=== PATIENT | male | born 1970 | race Caucasian/White ===

== ENCOUNTER 2019-07-07 11:22 | Emergency (ER) | payer SELFPAY ==
[~2019-07-07] VITALS: Ht 172.7 cm; Wt 87.6 kg
[2019-07-07] MEDS ORDERED: NS IV 1000 ML 1,000 ML IV SCH (12:15)
[2019-07-07] MEDS ORDERED: NS 100 ML (IVPB) BAG IV ONE (12:15)
[2019-07-07] MEDS ORDERED: ONDANSETRON 4 MG/2 ML (SDV) Z0FRAN IVP ONE (12:15)
[2019-07-07] MEDS ORDERED: LORazepam INJ 2 MG/ML (ATIVAN) VIAL IVP ONE ×3 (12:15→15:00)
[2019-07-07] MEDS ORDERED: HOLD METFORMIN - RECEIVED CONTRAST 20 ML VIAL IV SCH (12:15)
[2019-07-07] MEDS ORDERED: KETOROLAC 30 MG/ML VIAL IVP ONE (12:15)
[2019-07-07] MEDS ORDERED: CATHETER FLUSH 10 ML SYR IV PRN (12:15)
[2019-07-07] MEDS ORDERED: IOHEXOL 350 MG/ML 100 ML (OMNIPAQUE 350) VIAL IV ONE (12:15)
--- NOTE | 2019-07-07 12:16 | ED Psychosocial ---
General Chief Complaint: Substance Abuse Stated Complaint: ALCOHOL WITHDRAWAL Nursing Triage Note: Patient reports he is a binge drinker, states his latest binge began on June 24 and ended on July 06. He states during his binge he had 1 bottle of whiskey and 3 tall beers per day. He states his last drink was around noon yesterday and he woke during the night with shakiness, nausea, diarrhea, and anxiety. He states he has been to rehab at [facility] in [place], states today he spoke with someone named "Sheyla, here in town on [facility]" about getting into rehab. He states he has to have a librium script in hand before checking in to this rehab, unable to remember the name of the facility. Source: patient Exam Limitations: no limitations History of Present Illness Date Seen by Provider: Jul 07, 2019 Time Seen by Provider: 11:35 Initial Comments The patient is a pleasant 48-year-old male presents for evaluation of alcohol withdrawal. He states that he has been binge drinking since June 24 and stopped drinking yesterday around noon. He states that he is an alcoholic and before this recent binge had been sober for a few months after having gone through withdrawal at [place]. He states that he normally drinks one bottle of whiskey and 3 tall beers daily. Last night he was feeling very shaky, anxious, nauseated, and uncomfortable. He is also complaining of some right lower quadrant abdominal discomfort. He says that he reached out to someone today (on [facility], [facility]) to try to help with his symptoms and was told that he would need to come in to get a prescription for Librium to help with outpatient treatment. Allergies and Home Medications Allergies Coded Allergies: No Known Drug Allergies (Unverified , 07/07/19) Patient Home Medication List Home Medication List Reviewed: Yes Review of Systems Constitutional: dizziness, weakness EENTM: no symptoms reported Respiratory: no symptoms reported Cardiovascular: no symptoms reported Gastrointestinal: RLQ, abdominal pain, diarrhea, nausea Genitourinary: no symptoms reported Musculoskeletal: no symptoms reported Skin: no symptoms reported Psychiatric/Neurological: Anxiety All Other Systems Reviewed Negative Unless Noted: Yes Past Yzkcdsi-Svpanj-Lqidbp Hx Patient Social History Alcohol Use: Regular Use Number of Drinks Today: 0 Alcohol Beverage of Choice: Beer, Whiskey Recreational Drug Use: No Smoking Status: Current Everyday Smoker Type Used: Cigarettes 2nd Hand Smoke Exposure: No Recent Foreign Travel: No Contact w/Someone Who Travel: No Recent Infectious Disease Expo: No Recent Hopitalizations: No Physical Abuse: No Sexual Abuse: No Mistreated: No Fear: No Seasonal Allergies Seasonal Allergies: No Past Medical History Surgeries: Yes (knee scope) Respiratory: Yes COPD Cardiac: Yes High Cholesterol Neurological: No Genitourinary: No Gastrointestinal: No Musculoskeletal: No Endocrine: No HEENT: No Cancer: No Psychosocial: No Integumentary: No Physical Exam Vital Signs - First Documented 07/07/19 11:30 Temp 37.2 Pulse 105 Resp 18 B/P (MAP) 174/96 (122) Pulse Ox 96 O2 Delivery Room Air Capillary Refill : Less Than 3 Seconds Height, Weight, BMI Height: '" Weight: lbs. oz. 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 II-XII nml as tested, no motor/sensory deficits, alert, normal mood/affect, oriented x 3 Appearance/Memory: appropriate appearance, appropriate insight Behavior/Eye Contact: cooperative, good eye contact, normal speech Thoughts/Hallucinations: normal thought pattern Skin: normal color, warm/dry Progress/Results/Core Measures Results/Orders Lab Results Laboratory Tests Test 07/07/19 12:14 07/07/19 12:25 Range/Units Urine Opiates Screen NEGATIVE NEGATIVE Urine Oxycodone Screen NEGATIVE NEGATIVE Urine Methadone Screen NEGATIVE NEGATIVE Urine Propoxyphene Screen NEGATIVE NEGATIVE Urine Barbiturates Screen NEGATIVE NEGATIVE Ur Tricyclic Antidepressants Screen NEGATIVE NEGATIVE Urine Phencyclidine Screen NEGATIVE NEGATIVE Urine Amphetamines Screen NEGATIVE NEGATIVE Urine Methamphetamines Screen NEGATIVE NEGATIVE Urine Benzodiazepines Screen NEGATIVE NEGATIVE Urine Cocaine Screen NEGATIVE NEGATIVE Urine Cannabinoids Screen NEGATIVE NEGATIVE White Blood Count 11.7 H 4.3-11.0 10^3/uL Red Blood Count 4.76 4.35-5.85 10^6/uL Hemoglobin 14.5 13.3-17.7 G/DL Hematocrit 42 40-54 % Mean Corpuscular Volume 88 80-99 FL Mean Corpuscular Hemoglobin 30 25-34 PG Mean Corpuscular Hemoglobin Concent 34 32-36 G/DL Red Cell Distribution Width 13.8 10.0-14.5 % Platelet Count 245 130-400 10^3/uL Mean Platelet Volume 9.3 7.4-10.4 FL Neutrophils (%) (Auto) 75 42-75 % Lymphocytes (%) (Auto) 16 12-44 % Monocytes (%) (Auto) 7 0-12 % Eosinophils (%) (Auto) 0 0-10 % Basophils (%) (Auto) 1 0-10 % Neutrophils # (Auto) 8.8 H 1.8-7.8 X 10^3 Lymphocytes # (Auto) 1.9 1.0-4.0 X 10^3 Monocytes # (Auto) 0.8 0.0-1.0 X 10^3 Eosinophils # (Auto) 0.0 0.0-0.3 10^3/uL Basophils # (Auto) 0.1 0.0-0.1 10^3/uL Sodium Level 131 L 135-145 MMOL/L Potassium Level 3.8 3.6-5.0 MMOL/L Chloride Level 91 L 98-107 MMOL/L Carbon Dioxide Level 21 21-32 MMOL/L Anion Gap 19 H 5-14 MMOL/L Blood Urea Nitrogen 9 7-18 MG/DL Creatinine 0.55 L 0.60-1.30 MG/DL Estimat Glomerular Filtration Rate > 60 BUN/Creatinine Ratio 16 Glucose Level 88 70-105 MG/DL Calcium Level 9.4 8.5-10.1 MG/DL Corrected Calcium 8.5-10.1 MG/DL Total Bilirubin 1.0 0.1-1.0 MG/DL Aspartate Amino Transf (AST/SGOT) 44 H 5-34 U/L Alanine Aminotransferase (ALT/SGPT) 57 H 0-55 U/L Alkaline Phosphatase 51 40-136 U/L Total Protein 7.4 6.4-8.2 GM/DL Albumin 4.7 H 3.2-4.5 GM/DL Lipase 26 8-78 U/L Serum Alcohol < 10 <10 MG/DL My Orders Orders - STEPHON SALAS DO Cbc With Automated Diff (07/07/19 12:02) Comprehensive Metabolic Panel (07/07/19 12:02) Lipase (07/07/19 12:02) Alcohol (07/07/19 12:02) Ed Iv/Invasive Line Start (07/07/19 12:02) Ct Abdomen/Pelvis W (07/07/19 12:02) Ondansetron Injection (Zofran Injectio (07/07/19 12:15) Ketorolac Injection (Toradol Injection) (07/07/19 12:15) Lorazepam Injection (Ativan Injection) (07/07/19 12:15) Ns Iv 1000 Ml (Sodium Chloride 0.9%) (07/07/19 12:15) Track Patrol (07/07/19 12:02) Iohexol Injection (Omnipaque 350 Mg/Ml 1 (07/07/19 12:15) Received Contrast (Hold Metformin- Contr (07/07/19 12:15) Sodium Chloride Flush (Catheter Flush Sy (07/07/19 12:15) Ns (Ivpb) (Sodium Chloride 0.9% Ivpb Bag (07/07/19 12:15) Drug Screen Stat (Urine) (07/07/19 12:20) Medications Given in ED Current Medications Medications Dose Ordered Sig/Kady Route Start Time Stop Time Status Last Admin Dose Admin Iohexol 100 ml ONCE ONCE IV 07/07/19 12:15 07/07/19 12:16 DC 07/07/19 12:47 100 ML Ketorolac Tromethamine 30 mg ONCE ONCE IVP 07/07/19 12:15 07/07/19 12:16 DC 07/07/19 12:33 30 MG Lorazepam 2 mg ONCE ONCE IVP 07/07/19 12:15 07/07/19 12:16 DC 07/07/19 12:32 2 MG Ondansetron HCl 4 mg ONCE ONCE IVP 07/07/19 12:15 07/07/19 12:16 DC 07/07/19 12:32 4 MG Sodium Chloride 10 ml NEEDED PRN IV 07/07/19 12:15 07/07/19 12:47 10 ML Sodium Chloride 100 ml ONCE ONCE IV 07/07/19 12:15 07/07/19 12:16 DC 07/07/19 12:47 80 ML Vital Signs/I&O 07/07/19 11:30 Temp 37.2 Pulse 105 Resp 18 B/P (MAP) 174/96 (122) Pulse Ox 96 O2 Delivery Room Air Blood Pressure Mean: 122 POS Progress Progress Note : Progress Note @1425 - case was discussed with the [facility] who confirms that if the patient is given a prescription for Librium they can enroll him in outpatient therapy. I did offer to transfer the patient for inpatient therapy but he declines. He teas or severe alcohol withdrawal symptoms at this time. Advised the patient to return to the emergency Department immediately for new or worsening symptoms. He will also go home with a prescription for moxifloxacin for the possible inflammatory bowel disease. Departure Impression Primary Impression: Alcohol withdrawal Additional Impression: Colitis Disposition: HOME, SELF-CARE Condition: Stable Departure-Patient Inst. Decision time for Depature: 14:29 Referrals: [facility]/RODGER ROWE,LOCAL PHYSICIAN (PCP) Primary Care Physician Patient Instructions: Colitis, Alcohol Withdrawal Add. Discharge Instructions: Follow-up today with the [facility] with him you previously spoke. Take the prescribed medication as directed. Return to the emergency Department immediately for new or worsening symptoms. Scripts Chlordiazepoxide HCl (Chlordiazepoxide HCl) 25 Mg Capsule 50 MG PO Q6H PRN for withdrawal symptoms for 5 Days, #40 CAP Prov: STEPHON SALAS DO 07/07/19 Moxifloxacin HCl (Moxifloxacin HCl) 400 Mg Tablet 400 MG PO DAILY for 7 Days, #7 TAB Prov: STEPHON SALAS DO 07/07/19 STEPHON SALAS DO Jul 07, 2019 12:16 POS
[2019-07-07 12:32] LABS: BASOPHILS # (AUTO) 0.1 10^3/uL (0.0-0.1); BASOPHILS % (AUTO) 1 % (0-10); EOSINOPHILS % (AUTO) 0 % (0-10); HEMATOCRIT 42 % (40-54); HEMOGLOBIN 14.5 G/DL (13.3-17.7); LYMPHOCYTES # (AUTO) 1.9 X 10^3 (1.0-4.0); LYMPHOCYTES % (AUTO) 16 % (12-44); MEAN CORPUSCULAR HEMOGLOBIN 30 PG (25-34); MEAN CORPUSCULAR HGB CONC 34 G/DL (32-36); MEAN CORPUSCULAR VOLUME 88 FL (80-99); MEAN PLATELET VOLUME 9.3 FL (7.4-10.4); MONOCYTES # (AUTO) 0.8 X 10^3 (0.0-1.0); MONOCYTES % (AUTO) 7 % (0-12); NEUTROPHILS # (AUTO) 8.8 X 10^3 (1.8-7.8); NEUTROPHILS % (AUTO) 75 % (42-75); PLATELET COUNT 245 10^3/uL (130-400); RED CELL DISTRIBUTION WIDTH 13.8 % (10.0-14.5); WHITE BLOOD COUNT 11.7 10^3/uL (4.3-11.0)
[2019-07-07 12:36] LABS: AMPHETAMINE SCREEN, URINE NEGATIVE (NEGATIVE); BARBITURATE SCREEN URINE NEGATIVE (NEGATIVE); BENZODIAZEPINES SCREEN URINE NEGATIVE (NEGATIVE); CANNABINOID SCREEN, URINE NEGATIVE (NEGATIVE); COCAINE SCREEN URINE NEGATIVE (NEGATIVE); METHADONE STAT NEGATIVE (NEGATIVE); METHAMPHETAMINE SCREEN URINE S NEGATIVE (NEGATIVE); OPIATE SCREEN URINE NEGATIVE (NEGATIVE); OXYCODONE STAT NEGATIVE (NEGATIVE); PROPOXYPHENE STAT NEGATIVE (NEGATIVE); TRICYCLIC ANTIDEPRESSANTS SCRE NEGATIVE (NEGATIVE)
[2019-07-07 12:53] LABS: ALANINE AMINOTRANSFERASE 57 U/L (0-55); ALKALINE PHOSPHATASE 51 U/L (40-136); BUN/CREATININE RATIO 16; CALCIUM 9.4 MG/DL (8.5-10.1); CARBON DIOXIDE 21 MMOL/L (21-32); CHLORIDE 91 MMOL/L (98-107); CREATININE SERUM 0.55 MG/DL (0.60-1.30); GFR ESTIMATED > 60; GLUCOSE 88 MG/DL (70-105); POTASSIUM 3.8 MMOL/L (3.6-5.0); SODIUM 131 MMOL/L (135-145)
[2019-07-07 12:54] LABS: ALBUMIN 4.7 GM/DL (3.2-4.5); LIPASE 26 U/L (8-78); TOTAL PROTEIN 7.4 GM/DL (6.4-8.2)
--- NOTE | 2019-07-07 13:25 | Diagnostic Imaging Report ---
PROCEDURE: CT abdomen and pelvis with contrast. TECHNIQUE: Multiple contiguous axial images were obtained through the abdomen and pelvis after administration of intravenous contrast. Auto Exposure Controls were utilized during the CT exam to meet ALARA standards for radiation dose reduction. INDICATION: Binge drinking, nausea. FINDINGS: The visualized lung bases are clear. The liver demonstrated diffusely decreased density throughout. A 1 cm enhancing mass is identified within the posterior and lateral aspect of the right hepatic lobe. The spleen is unremarkable. The adrenal glands are unremarkable. The pancreas is unremarkable. The gallbladder is unremarkable. The right kidney is unremarkable. Several nonobstructing renal calculi are identified within the mid left kidney. This is associated with cortical scarring and thinning. The left kidney is otherwise unremarkable. Mild vascular calcifications within the abdominal aorta and its branch vessels without aneurysmal dilatation of the abdominal aorta. The urinary bladder is unremarkable. Diffuse mural thickening of the colon is noted with associated fatty infiltration of the colon. Additionally, a few loops of small bowel also demonstrate mural thickening, particularly within the left mid abdomen with associated hyperenhancement. No bowel obstruction or pneumatosis. The appendix is unremarkable. No significant adenopathy, free air, or free fluid throughout the abdomen or pelvis. No acute osseous abnormality. IMPRESSION: Diffuse mural thickening of the colon with scattered regions of small bowel mural thickening. Findings are favored related to underlying enteritis/inflammatory bowel disease. Given fatty infiltration throughout the colon, this can be seen secondary to sequelae of inflammatory bowel disease. Fatty infiltration of the liver with indeterminate 1 cm hyperenhancing lesion within the right hepatic lobe. This may simply relate to a flash filling hemangioma, though other etiologies not excluded. Nonobstructing left renal calculi with associated left renal scarring. Dictated by: Dictated on workstation # [id number]
--- NOTE | 2019-07-07 14:19 | NUR ---
Spoke with Sheyla at [facility]. Sheyla confirmed what patient had reported; patient will need a filled prescription for withdrawals for 5 days in hand when he presents to [facility] in [place] for rehab.
[2019-07-07] MEDS ORDERED: CHLO25CA10 PO (14:36)
[2019-07-07] MEDS ORDERED: MOXI400T31 PO (14:36)
[2019-07-07 15:05] VITALS: BP 165/83
== END 2019-07-07 15:10 | disposition home or self-care (01) ==
LOC: ER FS 11:23
DX: F10.239 Alcohol dependence with withdrawal, unspecified (principal); K52.9 Noninfective gastroenteritis and colitis, unspecified; J44.9 Chronic obstructive pulmonary disease, unspecified; E78.00 Pure hypercholesterolemia, unspecified; F17.210 Nicotine dependence, cigarettes, uncomplicated
CPT/HCPCS: 36415; 74177; 80053; 80306; 80320; 83690; 85025

== ENCOUNTER 2020-02-14 21:58 | Emergency (ER) | payer SELFPAY ==
[~2020-02-14] VITALS: Ht 172 cm; Wt 81.0 kg
[~2020-02-14 21:58] MED LIST: CHLO25CA10 PO; MOXI400T31 PO
[2020-02-14 22:01] VITALS: BP 171/118
[2020-02-14] MEDS ORDERED: DOXY100T2 PO (22:14)
--- NOTE | 2020-02-14 22:14 | ED Integumentary General ---
General Chief Complaint: Skin/Wound Problems Stated Complaint: SPIDER BITE Source: patient Exam Limitations: no limitations History of Present Illness Date Seen by Provider: Feb 14, 2020 Time Seen by Provider: 22:11 Initial Comments To ER with a suspected spider bite to the left forearm. He states this began as a blister at about noon today now has more erythema and a red streak going up the left arm. Timing/Duration: just prior to arrival Severity: moderate Associated Symptoms: denies symptoms Allergies and Home Medications Allergies Coded Allergies: No Known Drug Allergies (Unverified , 07/07/19) Home Medications Chlordiazepoxide HCl 25 Mg Capsule, 50 MG PO Q6H PRN for withdrawal symptoms Prescribed by: STEPHON SALAS on 07/07/19 1436 Moxifloxacin HCl 400 Mg Tablet, 400 MG PO DAILY Prescribed by: STEPHON SALAS on 07/07/19 1436 Patient Home Medication List Home Medication List Reviewed: Yes Review of Systems Review of Systems Constitutional: see HPI EENTM: see HPI Respiratory: no symptoms reported Cardiovascular: no symptoms reported Genitourinary: no symptoms reported Musculoskeletal: no symptoms reported Skin: see HPI Psychiatric/Neurological: No Symptoms Reported Endocrine: No Symptoms Reported Past Cpcipyi-Tpnpqe-Fxmhei Hx Patient Social History Alcohol Beverage of Choice: Beer, Whiskey Type Used: Cigarettes 2nd Hand Smoke Exposure: No Recent Foreign Travel: No Contact w/Someone Who Travel: No Recent Hopitalizations: No Seasonal Allergies Seasonal Allergies: No Past Medical History Surgeries: Yes (knee scope) Respiratory: Yes COPD Cardiac: Yes High Cholesterol Neurological: No Genitourinary: No Gastrointestinal: No Musculoskeletal: No Endocrine: No HEENT: No Cancer: No Psychosocial: No Integumentary: No Physical Exam Vital Signs Capillary Refill : General Appearance: WD/WN, no apparent distress HEENT: PERRL/EOMI, normal ENT inspection Neck: non-tender, full range of motion Cardiovascular: no edema, tachycardia Respiratory: normal breath sounds, no respiratory distress, no accessory muscle use Neurologic/Psychiatric: alert, normal mood/affect, oriented x 3 Skin: normal color, warm/dry Skin Problem Character: erythema, other (no drainable abscess. Half-dollar sized area of erythema with slight induration. Culture was collected.) Comments He is also tachycardic at about 1:15 and with high blood pressure 180/110. States he has a history of high blood pressure. Takes lisinopril at home. I'll give him a Toprol here. Progress/Results/Core Measures Results/Orders My Orders Orders - VILMA LIRA APRN Wound Culture (02/14/20 22:09) Metoprolol Tartrate (Ir) Tab (Lopressor (02/14/20 22:15) Doxycycline Hyclate Tablet (Vibramycin T (02/14/20 22:15) Departure Impression Primary Impression: Soft tissue infection Additional Impression: Hypertension Qualified Codes: I10 - Essential (primary) hypertension Disposition: HOME, SELF-CARE Condition: Stable Departure-Patient Inst. Decision time for Depature: 22:13 Referrals: NO,LOCAL PHYSICIAN (PCP/Family) Primary Care Physician Patient Instructions: Wound Care (DC) Add. Discharge Instructions: 1. Antibiotics as directed 2. Return to ER for any concerns 3. See your doctor next week for recheck. All discharge instructions reviewed with patient and/or family. Voiced understanding. Scripts Doxycycline Hyclate (Doxycycline Hyclate) 100 Mg Tablet 100 MG PO BID, #14 TAB 0 Refills Prov: VILMA LIRA APRN 02/14/20 VILMA LIRA APRN Feb 14, 2020 22:14
[2020-02-14] MEDS ORDERED: LIDOCAINE 1% INJ 20 ML 20 ML VIAL INJ ONE (22:15)
[2020-02-14] MEDS ORDERED: cefTRIAXone 1,000 MG/2.86 ml vial (IM ONLY) IM SCH (22:15)
[2020-02-14] MEDS ORDERED: meTOprolol TARTRATE 50 MG (LOPRESSOR) TAB PO ONE (22:15)
[2020-02-14] MEDS ORDERED: DOXYCYCLINE 100 MG (VIBRAMYCIN) TABLET PO SCH (22:15)
[2020-02-14] MEDS ORDERED: meTOprolol TARTRATE 25 MG (LOPRESSOR) TABLET ONE (22:29)
[2020-02-14] MEDS ORDERED: meTOprolol TARTRATE 25 MG (LOPRESSOR) TABLET PO ONE ×2 (22:45)
== END 2020-02-14 22:43 | disposition home or self-care (01) ==
LOC: EDUNIT# 21:58 → ER 21:59
DX: L08.9 Local infection of the skin and subcutaneous tissue, unspecified (principal); I10 Essential (primary) hypertension
CPT/HCPCS: 87070; 87077; 87205; 99284

== ENCOUNTER → 2022-10-18 | Outpatient (CLI) | payer OTHER ==
[~2022-10-18] MED LIST changes: +DOXY100T2 PO
--- NOTE | 2022-10-18 13:13 | Diagnostic Imaging Report ---
INDICATION: Back pain. TECHNIQUE: AP and lateral views of the lumbar spine were obtained. FINDINGS: The lumbar vertebrae are normal in height and alignment. There is no fracture or subluxation. There are small osteophytes throughout the lower lumbar levels. Disc spaces are normal in height. There is diffuse facet degenerative change. IMPRESSION: Degenerative changes in the lumbar spine with no acute fracture, compression deformity, or subluxation. Dictated by: Dictated on workstation # [id number]
--- NOTE | 2022-10-18 13:15 | Diagnostic Imaging Report ---
INDICATION: Left knee pain. TECHNIQUE: AP and lateral views of the left knee were obtained. FINDINGS: No fracture or acute bony abnormality is seen. The joint spaces appear unremarkable. There is some mild superior patellar spurring. There is no definite joint effusion. IMPRESSION: No acute abnormality in the left knee. Minimal superior patellar spurring. Dictated by: Dictated on workstation # [id number]
== END ==
LOC: RAD 08:50
PROVIDERS: ATTEND Family Medicine
DX: M47.816 Spondylosis without myelopathy or radiculopathy, lumbar region (principal); M25.562 Pain in left knee
CPT/HCPCS: 72100; 73560